=== PATIENT | female | born 1995 | race Two or more races ===

== ENCOUNTER 2018-04-29 20:38 | Emergency (ER) | payer OTHER ==
--- NOTE | 2018-04-29 22:51 | ER Document Report ---
ED General - General Chief Complaint: Ear Pain Stated Complaint: EAR PAIN Time Seen by Provider: 04/29/18 22:43 Mode of Arrival: Ambulatory Information source: Patient TRAVEL OUTSIDE OF THE [place] IN LAST 30 DAYS: No - HPI Patient complains to provider of: Loss of auditory acuity in the left ear Onset: This morning Onset/Duration: Sudden Quality of pain: Pressure Severity: Mild Pain Level: Denies Associated symptoms: None Exacerbated by: Denies Relieved by: Denies Similar symptoms previously: No Recently seen / treated by doctor: No Notes: 23-year-old female leaned on her left ear with her hand and developed sudden difficulty hearing in the left ear. No recent illness. Also states that the area in front of her ear is kind of sore since it started. No chronic medical problems. Normally healthy - Related Data Allergies/Adverse Reactions: No Known Allergies Allergy (Unverified 04/29/18 20:42) Past Medical History - General Information source: Patient - Social History Smoking Status: Never Smoker Chew tobacco use (# tins/day): No Drug Abuse: None Family History: Reviewed & Not Pertinent Patient has suicidal ideation: No Patient has homicidal ideation: No Renal/ Medical History: Denies: Hx Peritoneal Dialysis Review of Systems - Review of Systems Notes: Constitutional: No fevers. No chills. EENT: No eye redness. No eye pain. Left ear pain and difficulty hearing. No sore throat. Cardiovascular: No chest pain. No palpitations. Respiratory: No cough. No shortness of breath. No respiratory distress. Gastrointestinal: No abdominal pain. No nausea, vomiting, or diarrhea. Genitourinary: Atraumatic. No lesions. No pain. No discharge. Musculoskeletal: Atraumatic. No swelling. No deformities. Skin: No rash or lesions. Lymphatic: No swollen lymph nodes. Neurologic: No headache. No syncope. Psychiatric: No suicidal or homicidal ideation. Physical Exam - Vital signs Vitals: Temp Pulse Resp BP Pulse Ox 99.1 F 75 18 107/60 99 04/29/18 21:08 04/29/18 21:08 04/29/18 21:08 04/29/18 21:08 04/29/18 21:08 - Notes Notes: General: Well-developed, well-nourished. In no acute distress. Non-toxic appearing. Cardiac: Well-perfused. Regular rate and rhythm. No murmurs, rubs, or gallops. Pulmonary: No respiratory distress. No cyanosis. Bilateral lung fiels are clear to auscultation. Abdominal: Non-distended. Non-rigid. Bowels sounds are present in all four quadrants. No guarding or rebound. HEENT: Head is atraumatic. Conjunctivae not reddened. No tearing. PERRL. EOMI. Orbits atraumatic. No periorbital swelling or erythema. Oropharynx is without erythema, swelling, or exudates. Left ear canal is impacted with cerumen. Unable to see the tympanic membrane. There is no periauricular tenderness or swelling. No mastoid tenderness is noted. Neck: Supple. No adenopathy. No meningismus. Dermatologic: Warm with good turgor. No rash. Atraumatic. Chest: Atraumatic. No chest wall tenderness to palpation. Musculoskeletal: Moves all extremities well. No range of motion deficits. no muscular or joint tenderness. No paraspinal muscle tenderness. no midline spinal tenderness or step-off. Genitourinary: Examination deferred Neurologic: No gross neurologic deficits. Psychiatric: Normal mood. Course - Re-evaluation Re-evalutation: 04/29/18 22:51 Ear lavage of the left ear canal is been ordered. We will recheck the ear exam after that is complete. 04/29/18 23:28 Left ear canal was lavaged with normal saline using a small Angiocath tip. A significant portion of the wax was cleared. Patient symptoms resolved. There is some wax remaining. We will give the patient a prescription for Cerumenex. - Vital Signs Vital signs: Temp Pulse Resp BP Pulse Ox 99.1 F 75 18 107/60 99 04/29/18 21:08 04/29/18 21:08 04/29/18 21:08 04/29/18 21:08 04/29/18 21:08 Discharge - Discharge Clinical Impression: Impacted cerumen, left ear Condition: Good Disposition: HOME, SELF-CARE Instructions: Cerumen Impaction ([facility]) Prescriptions: Carbamide Peroxide [Debrox 6.5 % Otic Drops 15 ml] 5 drop OT BID #15 ml Referrals: [facility] [Provider Group] - Follow up as needed
[2018-04-29 23:54] VITALS: BP 107/59
== END 2018-04-29 23:54 | disposition home or self-care (01) ==
LOC: ER 20:38
PROC: 3E1B78Z Irrigation of Ear using Irrigating Substance, Via Natural or Artificial Opening (ICD-10-PCS; principal; 2018-04-29)
DX: H61.22 Impacted cerumen, left ear (principal); H92.02 Otalgia, left ear
CPT/HCPCS: 99282